=== PATIENT | female | born 1990 | race Hispanic/Latino ===

== ENCOUNTER 2016-08-26 13:05 | Inpatient (IN) ==
[2016-08-26] MEDS ORDERED: REGLAN PO ONE (13:26)
[2016-08-26] MEDS ORDERED: PEPCID PO ONE (13:26)
[2016-08-26] MEDS ORDERED: KEFZOL 1 GM/D5W 50 ML IV PRN (13:26)
[2016-08-26] MEDS ORDERED: STADOL IV PRN (13:26)
[2016-08-26] MEDS ORDERED: TYLENOL PO PRN (13:26)
[2016-08-26] MEDS ORDERED: PEPCID PO PRN (13:26)
[2016-08-26] MEDS ORDERED: ZOFRAN IV PRN (13:26)
[2016-08-26] MEDS ORDERED: LR 500 ML IV ONE (13:26)
[2016-08-26] MEDS ORDERED: PEPCID IV PRN (13:26)
[2016-08-26] MEDS ORDERED: LR 1,000 ML IV SCH (13:30)
[2016-08-26] MEDS ORDERED: SODIUM CHLORIDE 0.9% INJ SCH (13:30)
[2016-08-26] MEDS ORDERED: PITOCIN 30 UNITS/LR 500 ML IV SCH (13:30)
[2016-08-26] MEDS ORDERED: LR 2,000 ML ONE (13:43)
[2016-08-26] MEDS ORDERED: MINERAL OIL ONE (14:03)
[2016-08-26] MEDS ORDERED: XYLOCAINE-MPF 1% ONE (14:03)
[2016-08-26 14:04] LABS: URINE SOURCE VOIDED
[2016-08-26 14:05] LABS: MANUAL DIFF NEEDED? NO
[2016-08-26 14:07] LABS: BASO% 0.3 % (0.0-0.8); EOS# 0.01 X1000 (0.0-0.7); EOS% 0.1 % (0.0-10.0); HEMATOCRIT 35.9 % (37.0-47.0); HEMOGLOBIN 12.4 g/dL (12.0-16.0); IMM GRAN# 0.02 X1000 (0.0-0.04); IMM GRAN% 0.2 % (0.0-0.5); LYMPH# 1.77 X1000 (1.2-3.4); LYMPH% 20.1 % (20.5-51.1); MCH 30.3 PG (27-31); MCHC 34.5 g/dL (33-37); MCV 87.8 FL (81-99); MONO# 0.45 X1000 (0.11-0.59); MONO% 5.1 % (1.7-9.3); NEUT% 74.2 % (42.2-75.2); PLT 208 X1000 (130-400); RBC 4.09 XMIL (4.2-5.4)
[2016-08-26] MEDS ORDERED: AMPICILLIN 2 GM/NS 100 ML ONE (14:07)
[2016-08-26 14:08] LABS: BILIRUBIN URINE NEGATIVE (NEGATIVE); BLOOD URINE TRACE (NEGATIVE); CLARITY CLEAR (CLEAR); COLOR YELLOW; GLUCOSE URINE NEGATIVE (NEGATIVE); LEUKOCYTES URINE TRACE (NEGATIVE); NITRITE URINE NEGATIVE (NEGATIVE); PH URINE 6.5; PROTEIN URINE TRACE mg/dL (NEGATIVE); UROBILINOGEN URINE NORMAL
[2016-08-26 14:58] LABS: UR AMPHETAMINES QUAL NONE DETECTED (NONE DETECT); UR BARBITUATES QUAL NONE DETECTED (NONE DETECT); UR BENZODIAZEPIN QUAL NONE DETECTED (NONE DETECT); UR CANNABINOIDS QUAL NONE DETECTED (NONE DETECT); UR COCAINE QUAL NONE DETECTED (NONE DETECT); UR MDMA QUAL NONE DETECTED (NONE DETECT); UR METHADONE QUAL NONE DETECTED (NONE DETECT); UR METHAMPHETAMINE QUAL NONE DETECTED (NONE DETECT); UR OPIATES QUAL NONE DETECTED (NONE DETECT); UR OXYCODONE QUAL NONE DETECTED (NONE DETECT); UR PCP QUAL NONE DETECTED (NONE DETECT); UR TCA QUAL NONE DETECTED (NONE DETECT)
[2016-08-26] MEDS ORDERED: NUBAIN IV ONE (16:03)
[2016-08-26] MEDS ORDERED: M-M-R II VACCINE SUBQ ONE (16:21)
[2016-08-26] MEDS ORDERED: PITOCIN IM PRN (16:21)
[2016-08-26] MEDS ORDERED: BENADRYL IV PRN (16:21)
[2016-08-26] MEDS ORDERED: AMBIEN PO PRN (16:21)
[2016-08-26] MEDS ORDERED: PITOCIN 30 UNITS/LR 500 ML IV ONE (16:21)
[2016-08-26] MEDS ORDERED: CYTOTEC PO PRN (16:21)
[2016-08-26] MEDS ORDERED: HYDROXYZINE PO PRN (16:21)
[2016-08-26] MEDS ORDERED: MINERAL OIL MISC PRN (16:21)
[2016-08-26] MEDS ORDERED: PERCOCET-10 PO PRN (16:21)
[2016-08-26] MEDS ORDERED: PERI MEDS (DERMOPLAST/NUPERCAINAL/TUCKS) MISC PRN (16:21)
[2016-08-26] MEDS ORDERED: BOOSTRIX VACCINE IM ONE (16:21)
[2016-08-26] MEDS ORDERED: HYDROXYZINE IM PRN (16:21)
[2016-08-26] MEDS ORDERED: BENADRYL PO PRN (16:21)
[2016-08-26] MEDS ORDERED: PERCOCET-5 PO PRN (16:21)
[2016-08-26] MEDS ORDERED: XYLOCAINE-MPF 1% INJ PRN (16:21)
[2016-08-26] MEDS ORDERED: PITOCIN 20 UNITS/LR 1,000 ML IV SCH (16:30)
[2016-08-26] MEDS ORDERED: PITOCIN 20 UNITS/LR 1,000 ML ONE (16:35)
[2016-08-26] MEDS: PERICOLACE PO SCH (20:26)
[2016-08-27] MEDS: MOTRIN PO PRN ×3 (05:21→22:04)
[2016-08-27] MEDS: NORCO-5 PO PRN ×2 (05:21→14:06)
[2016-08-27 06:31] LABS: MANUAL DIFF NEEDED? NO
[2016-08-27 06:45] LABS: BASO% 0.3 % (0.0-0.8); EOS# 0.03 X1000 (0.0-0.7); EOS% 0.3 % (0.0-10.0); HEMATOCRIT 32.3 % (37.0-47.0); HEMOGLOBIN 10.8 g/dL (12.0-16.0); IMM GRAN# 0.02 X1000 (0.0-0.04); IMM GRAN% 0.2 % (0.0-0.5); LYMPH% 31.2 % (20.5-51.1); MCH 29.8 PG (27-31); MCHC 33.4 g/dL (33-37); MCV 89.2 FL (81-99); MONO# 0.51 X1000 (0.11-0.59); MONO% 5.1 % (1.7-9.3); MPV 11.1 FL (7.4-10.4); NEUT% 62.9 % (42.2-75.2); PLT 178 X1000 (130-400); RBC 3.62 XMIL (4.2-5.4)
[2016-08-27] MEDS: NORCO-10 PO PRN (22:04)
[2016-08-27] MEDS: PERICOLACE PO SCH (22:04)
[2016-08-27 23:30] VITALS: BP 106/65
[2016-08-28] MEDS ORDERED: BOOSTRIX VACCINE ONE (09:56)
[2016-08-28] MEDS: MOTRIN PO PRN (10:10)
[2016-08-28] MEDS: NORCO-10 PO PRN (10:10)
== END 2016-08-28 16:25 | disposition home or self-care (01) ==
LOC: P.OPLD 13:05 → P.LD 13:06 → P.OPLD 13:33 → P.LD 13:33
PROVIDERS: ADMIT Obstetrics & Gynecology; ATTEND Obstetrics & Gynecology